=== PATIENT | male | born 1955 | race African-American/Black ===

== ENCOUNTER 2016-08-01 14:43 | Inpatient (IN) | payer MEDICARE, OTHER ==
--- NOTE | ~2016-08-01 | CO ---
Unit #: [id number] #: [id number] Patient: ANNALISE CASTRO JR [id number] [address] [place], [place] [address] [id number] MR#: [id number] NAME: ANNALISE CASTRO JR ROOM: 552 Age: 61 Sex: M Admission Date: 08/01/2016 : 1955 Attending Physician: Douglas Manzo M.D. Primary Care Physician: Geraldine Avilez M.D. Consultation Date: 08/01/2016 CONSULTATION REPORT REASON FOR CONSULTATION Hyponatremia and admission sodium of 118. HISTORY OF PRESENT ILLNESS Mr. Castro is a 61-year-old male with a history of alcoholism, who presented to the emergency room today for the nonspecific complain of just some hiccups and cough. He apparently had been having some productive cough and saw his doctor last week and was started on some inhalers. He had also complained about some nonspecific chest pain on admission, but tells me tonight that he is having no issues at the present time. He is eating dinner with no nausea or vomiting. No diarrhea has been reported. He was found to have a toxic alcohol level. He tells me that he drinks about 3 beers a day. I did review his chart and does appear he has had a similar presentation in the past and was treated conservatively with improvement in his sodium levels. He is a smoker. PAST MEDICAL HISTORY Significant for alcoholism, chronic hyponatremia, COPD, tobacco abuse, chronic pain issues, history of gastric ulcer. PAST SURGICAL HISTORY He has had a cyst removed. HOME MEDICATIONS Ibuprofen b.i.d., Zyrtec 10 mg a day, Zantac 150 mg b.i.d., Flovent inhaler and Advair inhaler and Ellipta inhaler. ALLERGIES He has quoted allergy to penicillin. FAMILY HISTORY Significant for hypertension, diabetes, and breast cancer. SOCIAL HISTORY He does have a girlfriend, who is not present. He does not drink liquor or wine, just beer. No drug use. He does smoke cigarettes daily. REVIEW OF SYSTEMS A complete 12-point review of systems was completed with the above findings. In addition, he denies any headaches or dizziness at this time. No nosebleed. No sore throat or earache. No palpitations. No hemoptysis. No bright red blood per rectum or melena. No urinary complaints. No abdominal pain. No swelling. No rashes. No itching. No flank pain. No fevers. No chills. No night sweats or hot flashes. No Unit #: [id number] #: [id number] Patient: ANNALISE CASTRO JR intolerance to heat or cold. No bleeding issues. Unless otherwise indicated, the review of systems was negative. PHYSICAL EXAMINATION VITAL SIGNS: The patient is afebrile, pulse 87, respiratory rate 12, blood pressure 129/84. GENERAL: This is a 61-year-old male, lying in bed, watching TV, eating dinner, and in no acute distress. HEENT: Head is atraumatic and normocephalic. Eyes show pink conjunctivae with no icterus. No nasal drainage or nosebleed. Oropharynx is moist without thrush. NECK: Shows no JVD. HEART: Regular rate and rhythm with no murmur or rub appreciated. LUNGS: Have a few scattered coarse breath sounds. No wheezing. Tonight breathing is nonlabored. ABDOMEN: Soft, nontender, and nondistended. Bowel sounds are present. EXTREMITIES: No lower extremity cyanosis or edema. SKIN: Dry without rashes. MUSCULOSKELETAL: No joint effusions noted. NEUROLOGIC: The patient does appear to be intoxicated. He is moving all 4 extremities. LYMPHATIC: There is no neck or cervical lymphadenopathy. DIAGNOSTIC STUDIES LABORATORY RESULTS: Serum osmolality came back at 331. Magnesium was 1.9. Urine osmolality 222 and urine sodium was 15. Troponin has been negative x2. Urinalysis was unremarkable. Blood alcohol level was 314 mg/dL with greater than 150 being toxic. Chemistry on admission showed a sodium of 118, potassium 4.8, bicarb 20, BUN and creatinine were 6 and 0.4 respectively. AST and ALT were high at 102 and 55 respectively. Total protein high at 9. CBC was unremarkable. Again, review of his old labs shows that he did have a sodium level of 118 in 09/2015 that responded quickly to conservative treatment. He has chronic hyponatremia going back to 2009. ASSESSMENT AND PLAN 1. Hyponatremia. This appears to be acute on chronic due to his underlying chronic obstructive pulmonary disease with acute exacerbation from alcoholism and beer intake. The patient should self correct and I see no need for any fluids at this time. I do agree with stopping his NSAIDs, which will worsen the hyponatremia. Recheck sodium level was pending and the aim is to allow correction slowly. 2. Alcoholism. The patient is intoxicated and he is on alcohol protocol per Dr. Castellon. We will have alcohol cessation discussions tomorrow when he is more sober. 3. History of chronic obstructive pulmonary disease and tobacco abuse. 4. Hiccups. These are seemed to have resolved. I would like to thank Dr. Castellon for this consult and the opportunity to participate in evaluation and care of Mr. Castro. Dictated by... Ruperto Rowan Jr., MLyssa. MARQUITA/yue TD: 08/01/2016 22:21 Unit #: [id number] #: [id number] Patient: ANNALISE CASTRO JR JOB #: [id number] CONSULTATION REPORT X Ruperto Rowan MD X CONSULTATION REPORT
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
--- NOTE | ~2016-08-01 | DS ---
Unit #: [id number] #: [id number] Patient: ANNALISE CASTRO JR [id number] [address] [place], [place] [address] [id number] I MR#: [id number] NAME: ANNALISE CASTRO JR ROOM: 55 Age: 61 Sex: M Admission Date: 08/01/2016 : 1955 Discharge Date: 08/03/2016 Attending Physician: Douglas Manzo M.D. Primary Care Physician: Geraldine Avilez M.D. DISCHARGE SUMMARY ADMITTING DIAGNOSIS 1. Hiccups. 2. Heartburn. FURTHER DIAGNOSES 1. Hyponatremia. 2. Alcohol abuse. 3. Chronic obstructive pulmonary disease. 4. Tobacco abuse. 5. Chronic pain. HISTORY OF PRESENTING ILLNESS Patient is a 61-year-old, -[place] gentleman with a past medical history of alcohol abuse, COPD, and tobacco. Presented to the emergency room because of hiccups and heartburn. HOSPITAL COURSE In the hospital course, he was noted to have an initial sodium of 123. He was admitted for further management. He was also started on steroids for COPD exacerbation. Dr. Cinrton from renal was consulted for the hyponatremia thought to be secondary to beer-induced hyponatremia. With fluid restriction, slowly, the sodium improved. Clinically, he was better. I counseled him to quit drinking alcohol. I offered him rehab or to go as an outpatient. He refused. He wants to go home and renal said it is okay to let him go home. His sodium is 128. Counseled him again today at length requesting him to stay clean from alcohol. PHYSICAL EXAMINATION On the day of the discharge, his physical examination: VITAL SIGNS: Temperature 98.6, pulse rate 78, respiratory rate 19, and blood pressure 158/95. GENERAL APPEARANCE: Patient is alert and oriented x 3 lying in the bed. No acute distress. HEENT: Normocephalic and atraumatic. No icterus. PERRLA. Extraocular muscles intact. NECK: Supple. No JVD. HEART: S1 and S2. Regular rate and rhythm. CHEST: Bilateral equal air entry. Clear to auscultation. EXTREMITIES: No edema. Normal pulses. DISCHARGE MEDICATIONS 1. Medrol Dosepak. 2. Combivent 3 mL q.4 p.r.n. shortness of breath. 3. Advair Diskus 250/50 one puff twice a day. Unit #: [id number] #: [id number] Patient: ANNALISE CASTRO JR 4. Flonase 0.05% nasal spray. 5. Zyrtec 10 mg daily. 6. Incruse Ellipta 1 puff daily. 7. Norvasc 10 mg daily. 8. Zantac 150 mg b.i.d. 9. Omeprazole 20 mg p.o. daily. 10. Multivitamin 1 capsule p.o. daily. 11. Folic acid 1 mg daily. 12. Thiamine 100 mg daily. 13. Doxycycline 100 mg p.o. twice a day. I did explain to him in detail that he needs to sit up when he takes the doxycycline and he should take it with water and not to lie down at least for a half an hour to an hour after he takes doxycycline as it can induce gastric burning. We are just giving it for bronchitis. I will try to avoid quinolones because of his alcoholism and concern for QT prolongation. DISPOSITION Patient will be discharged home and will plan to arrange for an outpatient followup with the [facility]. Total time spent in the care 28 minutes. Dictated by... Freddie Carrasco/franko TD: 08/04/2016 07:09 JOB #: [id number] DISCHARGE SUMMARY X X DISCHARGE SUMMARY
--- NOTE | ~2016-08-01 | EKG ---
PATIENT: ANNALISE CASTRO UNIT #: [id number] Ventricular Rate: 74 BPM Atrial Rate: 74 BPM P-R Interval: 178 ms QRS Duration: 116 ms Q-T Interval: 418 ms QTC Calculation(Bezet): 463 ms P [place]: 68 degrees Calculated R [place]: -71 degrees Calculated T [place]: -18 degrees Diagnosis Line: Normal sinus rhythm Diagnosis Line: Left anterior fascicular block Diagnosis Line: Left ventricular hypertrophy with QRS widening Diagnosis Line: T wave abnormality, consider anterior ischemia Diagnosis Line: Prolonged QT Diagnosis Line: Abnormal ECG Diagnosis Line: No previous ECGs available Diagnosis Line: Confirmed by PAT COX MD ([id number]) on Diagnosis Line: 08/02/2016 4:09:36 PM INTERPRETING MD: KENNY CHERRY
--- NOTE | ~2016-08-01 | CR72 ---
[facility] A Service of [facility] [place] [place] RADIOLOGY TEXT RESULTS PATIENT: ANNALISE CASTRO JR LOCATION: [place] [address] : [birth year] UNIT #: [id number] AGE: [address]: Lauren Castellon MD SEX: M ORDER DR: [id number] [facility] [address]. [place], [place] [address] [id number] I MR#: [id number] Acc #: [id number] NAME: ANNALISE CASTRO JR : 1955 SEX: M STUDY DATE/TIME: 08/01/2016 12:51 UNIT: CEDOF ROOM: [id number] STUDY DESCRIPTION: CR Chest Single View Portable Attending Physician: Lauren Castellon M.D. Ordering Physician: Magda Ryan M.D. Primary Care Physician: Geraldine Avilez M.D. MEDICAL IMAGING REPORT This report is preliminary unless electronic signature is present EXAM Frontal chest, 08/01/2016 INDICATION Hiccups and heartburn today and yesterday. Daily alcohol intake. History of asthma and bronchitis. Tobacco abuse. EXAM Frontal chest COMPARISON 10/24/2015. Prior CT of 12/20/2014 and chest x-ray 06/20/2014. FINDINGS Cardiac silhouette is within normal limits. There is prominence of the pulmonary arteries bilaterally most characteristic of underlying pulmonary arterial hypertension, better demonstrated on prior chest CT. Vascularity is unremarkable. Chronic appearing coarsened interstitial markings are present in the mid and lower lung zones bilaterally likely reflecting fibrosis and scarring. No new consolidation, effusion or pneumothorax. IMPRESSION Chronic-appearing fibrosis and scarring in the mid and lower lung zones, underlying pulmonary arterial hypertension. No definite superimposed active disease. Dictated by... Kaleb Ruiz M.D. THIS IS AN ELECTRONICALLY VERIFIED REPORT Kaleb Ruiz M.D. at 08/02/2016 7:19 AM [place] [facility] A Service of [facility] [place] RADIOLOGY TEXT RESULTS PATIENT: ANNALISE CASTRO JR LOCATION: [facility] 552-01 : [birth year] UNIT #: [id number] AGE: [address]: Lauren Castellon MD SEX: M ORDER DR: TD: 08/01/2016 20:21 JOB #: [id number] MEDICAL IMAGING REPORT COPY
[2016-08-01 12:53] LABS: BASOPHIL% 0.6 % (0-2.5); EOSINOPHIL% 0.5 % (0.0-7.0); HEMATOCRIT 45.3 % (38.0-50.0); HEMOGLOBIN 15.5 gm/dL (13.0-16.0); LYMPHOCYTE# 1.8 X10e3 (1.0-3.5); LYMPHOCYTE% 25.7 % (17.0-45.0); MEAN CELL VOLUME 100.1 FL (83-96); MEAN CORPUSCULAR HEMOGLOBIN 34.3 PG (28-34); MEAN CORPUSCULAR HGB CONC 34.3 g/dL (30-36); MEAN PLATELET VOLUME 8.8 FL (6.5-11.5); MONOCYTE# 0.7 X10e3 (0-1.0); MONOCYTE% 9.8 % (3.0-12.0); NEUTROPHIL# 4.4 X10e3 (1.5-7.1); NEUTROPHIL% 63.4 % (40-75); RED BLOOD COUNT 4.53 X10e (3.90-5.60); RED CELL DISTRIBUTION WIDTH 12.5 % (11.0-15.5)
[2016-08-01 13:08] LABS: DIFF IND NO; PLATELET COUNT 167 X10e3 (140-420)
[2016-08-01 13:22] LABS: ALBUMIN SERUM 3.8 g/dL (3.5-5.0); ALKALINE PHOSPHATASE 60 U/L (32-92); ALT (SGPT) 55 U/L (10-40); AMYLASE 27 U/L (0-46); AST (SGOT) 102 U/L (10-42); BILIRUBIN, DIRECT 0.2 mg/dL (0.0-0.2); BILIRUBIN,INDIRECT 0.7 mg/dL (0.0-0.9); BILIRUBIN,TOTAL 0.9 mg/dL (0.2-2.0); BLOOD UREA NITROGEN 6 mg/dL (9-23); CALCIUM SERUM 8.3 mg/dL (8.4-10.2); CARBON DIOXIDE 20 mmol/L (22-31); CHLORIDE 85 mmol/L (100-111); CREATININE SERUM 0.4 mg/dL (0.6-1.4); GLOM FILT RATE Estimated ABOVE60 mL/min (>60); GLUCOSE FASTING 81 mg/dL (70-110); LIPASE 32 U/L (22-51); POTASSIUM 4.8 mmol/L (3.5-5.1)
[2016-08-01 13:26] LABS: SODIUM 118 mmol/L (135-145)
[2016-08-01 13:47] LABS: URINE SOURCE CLEAN CATCH
[2016-08-01 13:59] LABS: URINE APPEARANCE CLEAR; URINE BILIRUBIN NEG (NEG); URINE BLOOD NEG (NEG); URINE COLOR YELLOW; URINE GLUCOSE NEG (NEG); URINE KETONE TRACE (NEG); URINE LEUKOCYTE ESTERASE NEG (NEG); URINE NITRATE NEG (NEG); URINE PH 5.5 (5-8); URINE PROTEIN NEG (NEG); URINE SPECIFIC GRAVITY 1.008 (1.003-1.035); URINE UROBILINOGEN 0.2 MG/DL (NEG)
[2016-08-01 14:21] LABS: CULTURE INDICATED? NO
[2016-08-01 14:25] LABS: POC - CKMB 1.2 ng/mL (0.0-7.9); POC - TROPONIN <0.05 ng/mL (<=0.05)
[2016-08-01 14:36] LABS: POC - CKMB <1.0 ng/mL (0.0-7.9); POC - TROPONIN <0.05 ng/mL (<=0.05)
[~2016-08-01 14:43] MED LIST: ADVAIR 2501 DISK W/1 INH; ALBUTEROL17 G1 IH; ALBUTEROL17 GM INH; BENZONATATE PO; CLINDAMYCIN PH600 MG PO; FLEXERIL10 MG PO; FLOVENT DI50 MCG/DIS; IBUPROFEN100 MG PO; IBUPROFEN800 MG PO; INCRUSE ELLI62.5 MCG INH; LEVAQUIN750 M1 PO; LEVAQUIN750 MG PO; LORTAB 10-5001 EACH PO; MEDROL4 MG/DOSE- PO; PHENERGAN DM1 ML PO; PREDNISONE PO; PROVENTIL4 MG PO; ROBITUSSIN A-C10 ML PO; ZANTAC150 M1 PO; ZITHROMAX PO; ZITHROMAX1 G/PKT PO; ZYRTEC10 M2 PO
[2016-08-01 17:17] LABS: SODIUM URINE RANDOM 15 mmol/L
[2016-08-01 17:21] LABS: MAGNESIUM 1.9 mg/dL (1.6-3.0)
[2016-08-01 17:41] LABS: OSMOLALITY,URINE 222 mOsmo/kg (250-900)
[2016-08-01 18:30] LABS: BLOOD UREA NITROGEN 6 mg/dL (9-23); BUN/CREATININE RATIO 8.57; CALCIUM SERUM 8.5 mg/dL (8.4-10.2); CARBON DIOXIDE 22 mmol/L (22-31); CHLORIDE 91 mmol/L (100-111); CREATININE SERUM 0.7 mg/dL (0.6-1.4); GLOM FILT RATE Estimated ABOVE60 mL/min (>60); GLUCOSE FASTING 77 mg/dL (70-110); POTASSIUM 4.9 mmol/L (3.5-5.1)
[2016-08-01 18:32] LABS: SODIUM 121 mmol/L (135-145)
[2016-08-01 22:33] LABS: %MB 1.2 % (0.0-4.0); MB 1.9 ng/ml
[2016-08-02 02:26] LABS: BASOPHIL# 0.1 X10e3 (0-0.3); BASOPHIL% 0.7 % (0-2.5); EOSINOPHIL# 0.1 X10e3 (0-0.7); EOSINOPHIL% 0.8 % (0.0-7.0); HEMATOCRIT 44.4 % (38.0-50.0); HEMOGLOBIN 15.2 gm/dL (13.0-16.0); LYMPHOCYTE# 1.7 X10e3 (1.0-3.5); LYMPHOCYTE% 21.9 % (17.0-45.0); MEAN CORPUSCULAR HEMOGLOBIN 34.2 PG (28-34); MEAN CORPUSCULAR HGB CONC 34.2 g/dL (30-36); MEAN PLATELET VOLUME 8.7 FL (6.5-11.5); MONOCYTE% 13.2 % (3.0-12.0); NEUTROPHIL# 4.9 X10e3 (1.5-7.1); NEUTROPHIL% 63.4 % (40-75); PLATELET COUNT 158 X10e3 (140-420); RED BLOOD COUNT 4.44 X10e (3.90-5.60); RED CELL DISTRIBUTION WIDTH 12.9 % (11.0-15.5); WHITE BLOOD COUNT 7.7 X10e3 (4.0-10.5)
[2016-08-02 02:29] LABS: DIFF IND NO
[2016-08-02 02:46] LABS: ALBUMIN SERUM 3.7 g/dL (3.5-5.0); ALKALINE PHOSPHATASE 60 U/L (32-92); ALT (SGPT) 54 U/L (10-40); AST (SGOT) 98 U/L (10-42); BILIRUBIN,TOTAL 1.4 mg/dL (0.2-2.0); BLOOD UREA NITROGEN 9 mg/dL (9-23); CALCIUM SERUM 8.8 mg/dL (8.4-10.2); CARBON DIOXIDE 22 mmol/L (22-31); CHLORIDE 90 mmol/L (100-111); CREATININE SERUM 0.6 mg/dL (0.6-1.4); GLOM FILT RATE Estimated ABOVE60 mL/min (>60); GLUCOSE FASTING 79 mg/dL (70-110); MAGNESIUM 1.8 mg/dL (1.6-3.0); POTASSIUM 5.1 mmol/L (3.5-5.1); PROTEIN TOTAL SERUM 8.6 g/dL (6.0-8.3)
[2016-08-02 02:49] LABS: SODIUM 123 mmol/L (135-145)
[2016-08-02 03:04] LABS: %MB 1.3 % (0.0-4.0); MB 2.2 ng/ml
[2016-08-03 06:11] LABS: HEMATOCRIT 45.4 % (38.0-50.0); HEMOGLOBIN 15.5 gm/dL (13.0-16.0); MEAN CELL VOLUME 100.2 FL (83-96); MEAN CORPUSCULAR HEMOGLOBIN 34.1 PG (28-34); MEAN CORPUSCULAR HGB CONC 34.1 g/dL (30-36); MEAN PLATELET VOLUME 9.3 FL (6.5-11.5); RED BLOOD COUNT 4.53 X10e (3.90-5.60); RED CELL DISTRIBUTION WIDTH 12.8 % (11.0-15.5); WHITE BLOOD COUNT 5.1 X10e3 (4.0-10.5)
[2016-08-03 06:43] LABS: BLOOD UREA NITROGEN 14 mg/dL (9-23); BUN/CREATININE RATIO 23.33; CALCIUM SERUM 9.7 mg/dL (8.4-10.2); CARBON DIOXIDE 23 mmol/L (22-31); CHLORIDE 92 mmol/L (100-111); CREATININE SERUM 0.6 mg/dL (0.6-1.4); GLOM FILT RATE Estimated ABOVE60 mL/min (>60); GLUCOSE FASTING 149 mg/dL (70-110); POTASSIUM 4.7 mmol/L (3.5-5.1); SODIUM 128 mmol/L (135-145)
[2016-08-03] MEDS ORDERED: COMBIVENT U/D3 M4 INH (17:09)
[2016-08-03] MEDS ORDERED: NORVASC PO (17:12)
[2016-08-03] MEDS ORDERED: MULTI VITAMIN1 EACH PO (17:13)
[2016-08-03] MEDS ORDERED: DOXYCYCLINE PO (17:14)
[2016-08-03] MEDS ORDERED: FOLIC ACID1 MG PO (17:16)
[2016-08-03] MEDS ORDERED: THIAMINE HCL100 M2 PO (17:16)
[2016-08-03] MEDS ORDERED: MEDROL4 MG/DOSE- PO (17:17)
[2016-08-03] MEDS ORDERED: PRILOSEC PO (17:19)
== END 2016-08-03 18:44 | disposition home or self-care (01) | DRG 641 ==
LOC: CED 14:43 → CEDOF 16:05 → C5B 21:46
PROVIDERS: Family Medicine; Internal Medicine; Internal Medicine Nephrology; Student in an Organized Health Care Education/Training Program
DX: E87.1 Hypo-osmolality and hyponatremia (principal); J44.1 Chronic obstructive pulmonary disease with (acute) exacerbation; F10.229 Alcohol dependence with intoxication, unspecified; Y90.8 Blood alcohol level of 240 mg/100 ml or more; Z88.0 Allergy status to penicillin; F17.210 Nicotine dependence, cigarettes, uncomplicated; G89.29 Other chronic pain; R06.6 Hiccough; Z71.41 Alcohol abuse counseling and surveillance of alcoholic
CPT/HCPCS: 36415; 71010; 80048; 80053; 80076; 81003; 82150; 82550; 82553; 83690; 83735; 83930; 83935; 84300; 84443; 84484; 85025; 85027; 93005; 94664; 94760; 96374; 96375; 99285; C9113; G0480; J2405; J2930

== ENCOUNTER 2016-08-09 14:36 | Emergency (ER) | payer MEDICARE, OTHER ==
--- NOTE | ~2016-08-09 | EKG ---
PATIENT: ANNALISE CASTRO UNIT #: [id number] Ventricular Rate: 87 BPM Atrial Rate: 87 BPM P-R Interval: 154 ms QRS Duration: 100 ms Q-T Interval: 344 ms QTC Calculation(Bezet): 413 ms P [place]: 63 degrees Calculated R [place]: -73 degrees Calculated T [place]: 49 degrees Diagnosis Line: Normal sinus rhythm Diagnosis Line: Left anterior fascicular block Diagnosis Line: Cannot rule out Inferior infarct (masked by Diagnosis Line: fascicular block?) , age undetermined Diagnosis Line: Abnormal ECG Diagnosis Line: Diagnosis Line: Confirmed by DARCI MARADIAGA MD ([id number]) on Diagnosis Line: 08/10/2016 11:24:25 AM INTERPRETING MD: HIREN CHERRY
--- NOTE | ~2016-08-09 | CR72 ---
[facility] A Service of [facility] RADIOLOGY TEXT RESULTS PATIENT: ANNALISE CASTRO JR LOCATION: [facility] : 55 UNIT #: [id number] AGE: [address]: Lamberto Cruz MD SEX: M ORDER DR: [id number] [facility] [address] [place], [place] [address] [id number] E MR#: [id number] Acc #: [id number] NAME: ANNALISE CASTRO JR : 1955 SEX: M STUDY DATE/TIME: 08/09/2016 14:19 UNIT: [facility] ROOM: STUDY DESCRIPTION: CR Chest Single View Portable Attending Physician: Lamberto Cruz M.D. Ordering Physician: Lamberto Cruz M.D. Primary Care Physician: Geraldine Avilez M.D. MEDICAL IMAGING REPORT This report is preliminary unless electronic signature is present EXAM Portable chest. DATE OF EXAM 08/09/2016 COMPARISON 08/01/2016 HISTORY Short of air for 2 days. FINDINGS Slight increase in right basilar interstitial infiltrates since the prior study. Diffuse interstitial prominence is, otherwise, stable, as is mild vascular redistribution. There is no effusion or pneumothorax. Dictated by... Reynaldo Pichardo M.D. THIS IS AN ELECTRONICALLY VERIFIED REPORT Reynaldo Pichardo M.D. at 08/11/2016 3:42 PM SHARRON/kady TD: 08/09/2016 22:58 JOB #: [id number] MEDICAL IMAGING REPORT COPY
[~2016-08-09 14:36] MED LIST changes: +COMBIVENT U/D3 M4 INH; +DOXYCYCLINE PO; +FOLIC ACID1 MG PO; +MULTI VITAMIN1 EACH PO; +NORVASC PO; +PRILOSEC PO; +THIAMINE HCL100 M2 PO
[2016-08-09 14:38] LABS: BASOPHIL% 0.3 % (0-2.5); EOSINOPHIL% 0.1 % (0.0-7.0); HEMOGLOBIN 15.1 gm/dL (13.0-16.0); LYMPHOCYTE# 0.2 X10e3 (1.0-3.5); LYMPHOCYTE% 3.1 % (17.0-45.0); MEAN CELL VOLUME 99.8 FL (83-96); MEAN CORPUSCULAR HEMOGLOBIN 34.2 PG (28-34); MEAN CORPUSCULAR HGB CONC 34.2 g/dL (30-36); MONOCYTE# 1.4 X10e3 (0-1.0); MONOCYTE% 18.4 % (3.0-12.0); NEUTROPHIL# 5.9 X10e3 (1.5-7.1); NEUTROPHIL% 78.1 % (40-75); PLATELET COUNT 175 X10e3 (140-420); RED BLOOD COUNT 4.41 X10e (3.90-5.60); RED CELL DISTRIBUTION WIDTH 12.8 % (11.0-15.5); WHITE BLOOD COUNT 7.6 X10e3 (4.0-10.5)
[2016-08-09 14:39] LABS: DIFF IND YES
[2016-08-09 14:42] LABS: POC - CKMB <1.0 ng/mL (0.0-7.9); POC - TROPONIN <0.05 ng/mL (<=0.05)
[2016-08-09 14:45] LABS: INFLUENZA A POS (NEG); INFLUENZA B NEG (NEG)
[2016-08-09 15:05] LABS: PLATELET ESTIMATE NORMAL (NORMAL); RBC NORMAL YES
[2016-08-09 15:18] LABS: ALBUMIN SERUM 3.7 g/dL (3.5-5.0); ALKALINE PHOSPHATASE 47 U/L (32-92); ALT (SGPT) 103 U/L (10-40); AST (SGOT) 98 U/L (10-42); BILIRUBIN, DIRECT 0.2 mg/dL (0.0-0.2); BILIRUBIN,INDIRECT 0.6 mg/dL (0.0-0.9); BILIRUBIN,TOTAL 0.8 mg/dL (0.2-2.0); BLOOD UREA NITROGEN 7 mg/dL (9-23); BUN/CREATININE RATIO 8.75; CALCIUM SERUM 8.9 mg/dL (8.4-10.2); CARBON DIOXIDE 23 mmol/L (22-31); CHLORIDE 89 mmol/L (100-111); CREATININE SERUM 0.8 mg/dL (0.6-1.4); GLOM FILT RATE Estimated ABOVE60 mL/min (>60); GLUCOSE FASTING 101 mg/dL (70-110); POTASSIUM 4.6 mmol/L (3.5-5.1); PROTEIN TOTAL SERUM 8.4 g/dL (6.0-8.3)
[2016-08-09 15:19] LABS: SODIUM 126 mmol/L (135-145)
[2016-08-09 15:20] LABS: ALCOHOL BLOOD <5 mg/dL (0)
== END 2016-08-09 17:20 | disposition home or self-care (01) ==
LOC: CED 14:36
PROVIDERS: Emergency Medicine
DX: J09.X2 Influenza due to identified novel influenza A virus with other respiratory manifestations (principal); J18.8 Other pneumonia, unspecified organism; E87.1 Hypo-osmolality and hyponatremia; K21.9 Gastro-esophageal reflux disease without esophagitis; J44.9 Chronic obstructive pulmonary disease, unspecified; F17.210 Nicotine dependence, cigarettes, uncomplicated; Z88.0 Allergy status to penicillin; Z79.899 Other long term (current) drug therapy
CPT/HCPCS: 36415; 71010; 80048; 80076; 82553; 84484; 85025; 87040; 87804; 93005; 94640; 96361; 96365; 96367; 96375; 99284; G0480; J0456; J0696; J2930